=== PATIENT | male | born 1965 | race Caucasian/White ===

== ENCOUNTER → 2019-05-26 16:47 | Outpatient (CLI) | payer OTHER, SELFPAY ==
--- NOTE | ~2019-05-26 | XR_ITS ---
EXAMINATION: XR foot LT min 3V, XR heel LT min 2V DATE: 05/26/2019 17:06 INDICATION: Heel spur at the left foot TECHNIQUE: 1. Dorsoplantar, two oblique and lateral views of the left foot were obtained. 2. Lateral and axial views of the left calcaneus were obtained. COMPARISON: None. FINDINGS: Alignment is normal. No fracture. Mild osteoarthritis at the first metatarsophalangeal and a few inte rphalangeal joints. Small Achilles calcaneal spur with tiny enthesopathic ossicle at the distal Achil les tendon. No erosions. Soft tissues are unremarkable. IMPRESSION: 1. Small enthesophyte and tiny enthesopathic ossicle at the calcaneal insertion of the distal Edith s tendon. Reviewed, dictated and finalized at location A. [employer] IMPRESSION: 1. Small enthesophyte and tiny enthesopathic ossicle at the calcaneal insertion of the distal Achilles tendon.
== END ==
PROVIDERS: Visit Provider Chiropractor
DX: M77.32 Calcaneal spur, left foot (principal)
CPT/HCPCS: 73630; 73650

== ENCOUNTER 2020-10-20 13:52 | Emergency (ER) | payer OTHER, SELFPAY ==
[2020-10-20 13:58] VITALS: BP 174/90; PULSE 61; RESP 18; TEMP 36.9; O2SAT 100
--- NOTE | 2020-10-20 14:27 | ED.EYEPROB ---
HPI - Eye Problem General Chief complaint: Eye Problems Stated complaint: eye injury Time Seen by Provider: 10/20/20 14:15 Source: patient Mode of arrival: ambulatory Limitations: no limitations History of Present Illness HPI Narrative: Patient is a 54-year-old male complaining of left eye pain, redness, and tearing after he was trimming trees and a branch accidentally hit his left eye. Patient denies any other pain or injuries. chief complaint: eye pain, eye redness and eye injury Onset description: sudden Duration: constant Location: left eye Eye Symptoms: burning, redness and foreign body sensation Associated symptoms: none Related Data Allergies Allergy/AdvReac Type Severity Reaction Status Date / Time No Known Allergies Allergy Unverified 10/03/11 12:24 Review of Systems Review of Systems: All systems reviewed & are unremarkable except as noted in HPI and below PMFSH Social History Social History Gender identity (if verbalized by the patient): Male Comments Past medical history: None Family history: Noncontributory Social history: Non-smoker no EtOH or drug use Exam Const: General: no acute distress and alert Orientation/consciousness: patient oriented x3 HENMT: Head: normal to inspection Ears: external ears normal Face and sinus: normal facial exam and sinuses nontender Eyes: Other: Erythematous, injected left conjunctiva Positive for corneal abrasion left eye Course Vital Signs Vital signs: Vital Signs Temperature 36.9 C 10/20/20 13:58 Pulse Rate 61 10/20/20 13:58 Respiratory Rate 18 10/20/20 13:58 Blood Pressure 174/90 H 10/20/20 13:58 Pulse Oximetry 100 10/20/20 13:58 Temperature 36.9 C 10/20/20 13:58 Pulse Rate 61 10/20/20 13:58 Respiratory Rate 18 10/20/20 13:58 Blood Pressure 174/90 H 10/20/20 13:58 Pulse Oximetry 100 10/20/20 13:58 Discharge Plan Discharge Clinical Impression: Corneal abrasion Qualifiers: Encounter type: initial encounter Laterality: left Qualified Code(s): S05.02XA - Injury of conjunctiva and corneal abrasion without foreign body, left eye, initial encounter Patient Disposition: Home, Self-Care Condition: Stable Instructions: Corneal Abrasion (ED) Prescriptions: New ciprofloxacin HCl 0.3 % drops See Rx Instructions .ROUTE .COMPLEX Qty: 5 RF: 0 Follow-up/Referrals: UNKNOWN,DOCTOR [Non-Staff] - Time of Disposition: 15:38
[2020-10-20] MEDS: ERYTHROMYCIN OPHTH OINTMENT 1 GM TUBE 1 APPLIC LEFT EYE (14:45)
--- NOTE | 2020-10-20 15:50 | PC.NURSE ---
1500 patient stated ointment was making pain in the eye worse. ERP notified and aware. ERP ordered pain medications, see JUN 1514. Went to administer pain medications and patient refused pain medications and requesting to wash their eye out. ERP notified. ERP stated via verbal order readback to irrigate eye out. 1530 Eye irrigated, patient did not tolerate procedure well. 1540 Went to discharge patient and found that patient has eloped and left the ED without receiving instructions and prescription.
== END 2020-10-20 15:54 | disposition home or self-care (01) ==
PROVIDERS: Emergency Provider Emergency Medicine; PCP Family Medicine
DX: S05.02XA Injury of conjunctiva and corneal abrasion without foreign body, left eye, initial encounter (principal); W22.8XXA Striking against or struck by other objects, initial encounter
CPT/HCPCS: 99283; A9270